=== PATIENT | female | born 1970 | race Caucasian/White ===

== ENCOUNTER 2023-03-05 05:20 | Emergency (ER) | payer BC ==
[2023-03-05 05:39] LABS: Bilirubin Negative (Negative); Blood, Urine Negative (Negative); Clarity Clear (Clear); Glucose, Urine (Dipstick) Negative (Negative); Ketone, Urine Negative (Negative); Leukocyte Negative (Negative); Nitrite Negative (Negative); Protein, Urine (Dipstick) Trace mg/dL (Neg-Trace); Specific Gravity, Urine 1.025 (1.005-1.030); Urobilinogen 0.2 mg/dL (Less than 2)
[2023-03-05 05:45] LABS: CAUTI Indications for Culture Pelvic or flank pain; RBC/HPF None Seen HPF (0-3); Squamous Epithelial 21-50 HPF (0-3); WBC/HPF 0-3 HPF (0-3)
[2023-03-05 05:46] LABS: Bacteria/HPF Rare-Few HPF (None Seen); Urine Culture Reflex No No
[2023-03-05] MEDS ORDERED: Orphenadrine Citrate 60 MG/2 ML VIAL ONE (06:59)
[2023-03-05 07:11] LABS: #Basophils 0.1 thou/uL (0.0-0.2); #Eosinphils 0.1 thou/uL (0.0-0.7); #Monocytes 0.3 thou/uL (0.11-0.59); %Basophils 0.9 % (0.0-1.0); %Lymphocytes 30.3 % (21.0-51.0); %Monocytes 5.2 % (0.0-10.0); %Neutrophils 61.6 % (42.0-75.0); Hematocrit 42.9 % (36.0-47.0); Hemoglobin 13.8 g/dL (12.0-16.0); Mean Corpuscular HGB CONC 32.1 g/dL (32.0-36.0); Mean Corpuscular Hemoglobin 30.3 pg (27.0-31.0); Mean Corpuscular Volume 94.5 fl (78.0-98.0); Platelet Count 165 10x3/uL (130-400); RBC Distribution Width 12.5 % (11.5-14.5); Red Blood Cell (RBC) Count 4.54 mill/uL (4.20-5.40); White Blood Cell (WBC) Count 6.6 10x3/uL (4.8-10.8)
[2023-03-05 07:27] LABS: ALT (SGPT) 87 U/L (8-55); AST (SGOT) 49 U/L (5-34); Albumin 4.3 g/dL (3.5-5.0); Alkaline Phosphatase 67 U/L (40-110); Anion Gap 15 mmol/L (10-20); BUN (Urea Nitrogen) 15 mg/dL (9.8-20.1); Bilirubin, Total 0.8 mg/dL (0.2-1.2); Calc. Creatinine Clearance 0 mL/min (70-130); Calcium 9.5 mg/dL (7.8-10.44); Carbon Dioxide 24 mmol/L (22-29); Chloride 104 mmol/L (98-107); Estimated GFR 89; Globulin 3.4 g/dL (2.4-3.5); Glucose 153 mg/dL (70-105); Lipase 63 U/L (8-78); Potassium 3.7 mmol/L (3.5-5.1); Protein, Total 7.7 g/dL (6.0-8.3); Sodium 139 mmol/L (136-145)
== END 2023-03-05 07:41 | disposition home or self-care (01) ==
LOC: MADERS 05:20
DX: K59.00 Constipation, unspecified (principal); R74.01 Elevation of levels of liver transaminase levels; E11.9 Type 2 diabetes mellitus without complications; Z79.899 Other long term (current) drug therapy
CPT/HCPCS: 74176; 80053; 81001; 83690; 85025; 96372; J2360